=== PATIENT | female | born 1955 | race Caucasian/White ===

== ENCOUNTER 2017-03-06 09:53 | Emergency (ER) | payer SELFPAY ==
[~2017-03-06] VITALS: Ht 157.5 cm; Wt 65.0 kg
[~2017-03-06 09:53] MED LIST: OMEP20TA39 PO; PROZ20CA11 PO; ZOFR4TAB3 PO
[2017-03-06 09:55] VITALS: BP 147/76; PULSE 86; RESP 17; TEMP 98.4; O2SAT 97
[2017-03-06] MEDS ORDERED: SODIUM CHLOR 0.9% 1000 ML INJ 1,000 ML IV ONE (10:45)
[2017-03-06] MEDS ORDERED: MORPHINE SULFATE 4 MG/ML INJ IV PUSH ONE (10:45)
[2017-03-06] MEDS ORDERED: ONDANSETRON HCL 4 MG/2 ML VIAL IV PUSH ONE (10:45)
[2017-03-06 11:05] LABS: AUTOMATED NEUTROPHIL # 9.2 TH/MM3 (1.8-7.7); BASOPHIL % 0.3 % (0.0-2.0); EOSINOPHIL # 0.1 TH/MM3 (0-0.4); EOSINOPHIL % 0.6 % (0.0-4.0); HEMATOCRIT 39.7 % (35.0-46.0); HEMO FLAGS DIFF FINAL; LYMPH % 9.1 % (9.0-44.0); MEAN CELL VOLUME 90.4 FL (80.0-100.0); MEAN CORPUSCULAR HEMOGLOBIN 30.2 PG (27.0-34.0); MEAN CORPUSCULAR HGB CONC 33.4 % (32.0-36.0); MONO % 7.3 % (0.0-8.0); NEUT % 82.7 % (16.0-70.0); PLATELET COUNT 285 TH/MM3 (150-450); RED BLOOD COUNT 4.39 MIL/MM3 (4.00-5.30); RED CELL DISTRIBUTION WIDTH 13.3 % (11.6-17.2); WHITE BLOOD COUNT 11.1 TH/MM3 (4.0-11.0)
[2017-03-06 11:21] LABS: ANION GAP 7 MEQ/L (5-15); AST (GOT) 15 U/L (15-37); BLOOD UREA NITROGEN 15 MG/DL (7-18); CHLORIDE 106 MEQ/L (98-107); GLOMERULAR FILTRATION RATE 62 ML/MIN (>89); POTASSIUM 4.1 MEQ/L (3.5-5.1); SODIUM (NA) 138 MEQ/L (136-145)
[2017-03-06 11:22] LABS: ALT (GPT) 17 U/L (10-53)
[2017-03-06 11:24] LABS: ALKALINE PHOSPHATASE 85 U/L (45-117); TOTAL BILIRUBIN ADULT 0.4 MG/DL (0.2-1.0)
[2017-03-06] MEDS ORDERED: IOHEXOL 350 MG/ML 10 ML VIAL (for RAD DIAG) IVCONTRAST ONE (12:37)
--- NOTE | 2017-03-06 12:44 | RADRPT ---
EXAM DATE/TIME: 03/06/2017 12:28 [facility] COMPARISON: No previous studies available for comparison. INDICATIONS : Left lower quadrant pain. IV CONTRAST: 97 cc Omnipaque 350 (iohexol) IV ORAL CONTRAST: No oral contrast ingested. RADIATION DOSE: 7.24 CTDIvol (mGy) MEDICAL HISTORY : Diverticulitis. Chronic obstructive pulmonary disease. SURGICAL HISTORY : Appendectomy. ENCOUNTER: Initial ACUITY: 1 day PAIN SCALE: 5/10 LOCATION: Left lower quadrant TECHNIQUE: Volumetric scanning of the abdomen and pelvis was performed. Using automated exposure control and ad justment of the mA and/or kV according to patient size, radiation dose was kept as low as reasonably achievable to obtain optimal diagnostic quality images. DICOM format image data is available electro nically for review and comparison. FINDINGS: LOWER LUNGS: The visualized lower lungs are clear. LIVER: There is a tiny cyst in the anterior subcapsular portion of segment II. No suspicious mass. No biliar y ductal dilatation. The gallbladder is surgically absent. SPLEEN: Multiple granulomatous calcifications. Normal size. PANCREAS: Within normal limits. KIDNEYS: Normal in size and shape. There is no mass, stone or hydronephrosis. ADRENAL GLANDS: Within normal limits. VASCULAR: There is no aortic aneurysm. BOWEL/MESENTERY: The stomach, small bowel, and colon demonstrate no acute abnormality. There is no free intraperitone al air or fluid. ABDOMINAL WALL: Tiny fat-containing supraumbilical midline hernia. RETROPERITONEUM: There is no lymphadenopathy. BLADDER: No wall thickening or mass. REPRODUCTIVE: Uterus is surgically absent. No evidence of pelvic mass or free fluid. INGUINAL: There is no lymphadenopathy or hernia. MUSCULOSKELETAL: Within normal limits for patient age. CONCLUSION: No acute CT findings in the abdomen or pelvis. Ayan Garibay MD on March 06, 2017 at 12:38 Board Certified Radiologist. This report was verified electronically.
[2017-03-06 13:11] LABS: BLOOD, URINE NEG (NEG); GLUCOSE,URINE NEG (NEG); KETONE, URINE NEG (NEG); NITRITE,URINE NEG (NEG); SQUAMOUS EPITHELIAL CELL URINE 1 /hpf (0-5); URINE COLOR YELLOW (YELLW/STRAW)
[2017-03-06 13:13] LABS: COMMENT (UR) CULT NOT INDICATED; CULTURE IF INDICATED CULT NOT INDICATED
[2017-03-06] MEDS ORDERED: METR-1 PO (13:31)
[2017-03-06] MEDS ORDERED: CIPR-9 PO (13:31)
[2017-03-06] MEDS ORDERED: NAPR500T PO (13:31)
--- NOTE | 2017-03-06 13:31 | PD ---
HPI Chief Complaint: Abdominal Pain Time Seen by Provider: 10:28 Travel History International Travel<30 days: No Contact w/Intl Traveler<30days: No Traveled to known affect area: No History of Present Illness HPI This is a 61-year-old female who presents to the emergency department with several days of left lower quadrant abdominal pain, intermittent at first and more consistent throughout today, radiating to the left flank, stabbing, worse with movement and walking. She denies any fevers or chills. She has felt nauseous. She denies any dysuria or hematuria. She did have diverticulitis several years ago and she says this feels similar. She has had shingles in the past and she says this doesn't feel the same. She's never had a kidney stone. PFSH Past Medical History Arthritis: No Asthma: Yes Autoimmune Disease: No Blood Disorders: No Anxiety: Yes Depression: Yes Heart Rhythm Problems: No Cancer: No Cardiovascular Problems: Yes (MITRAL VALVE REGURITATION ; HX HEART CATH ; HX V- TACH) High Cholesterol: No Chemotherapy: No Chest Pain: No Congestive Heart Failure: No COPD: Yes Cerebrovascular Accident: Yes (2005; NO DEFICITS) Diabetes: No Diminished Hearing: No Endocrine: No Gastrointestinal Disorders: Yes (HX GASTRITIS/IBS/HX DIVERTICULITIS/GERD) GERD: Yes Glaucoma: No Genitourinary: No Headaches: No Hepatitis: No Hiatal Hernia: Yes Hypertension: No Immune Disorder: No Implanted Vascular Access Dvce: No Kidney Stones: No Medical other: No Musculoskeletal: Yes (LUMBAR STENOSIS; HX SCIATICA PAIN RT SIDE) Neurologic: Yes (2004 CVA) Psychiatric: Yes (ANXIETY AND DEPRESSION (TAKING PROZAC)) Reproductive: Yes (ENDOMETRIOSIS WITH ITZ) Respiratory: Yes (ASTHMA; COPD) Immunizations Current: Yes Migraines: Yes ( ) Myocardial Infarction: No Radiation Therapy: No Renal Failure: No Seizures: No Sickle Cell Disease: No Sleep Apnea: No Thyroid Disease: No Ulcer: No ?: Not Menopausal: Yes : 4 Para: 2 Miscarriage: 2 Ectopic : Yes Ovarian Cysts: Yes Past Surgical History Abdominal Surgery: Yes ( ) AICD: No Appendectomy: Yes Arteriovenous Shunt: No Cardiac Surgery: No Cholecystectomy: No Ear Surgery: No Endocrine Surgery: No Eye Surgery: No Genitourinary Surgery: No Gynecologic Surgery: Yes (ECTOPIC PREG-LAPAROTOMY WITH SALPINGO-OOPHORECTOMY) Hysterectomy: Yes (1994) Insulin Pump: No Joint Replacement: No Neurologic Surgery: No Oral Surgery: Yes (T&A) Pacemaker: No Thoracic Surgery: No Tonsillectomy: Yes (T & A) Other Surgery: Yes Social History Alcohol Use: Yes (RARE) Tobacco Use: No Substance Use: No Allergies-Medications (Allergen,Severity, Reaction): Coded Allergies: No Known Allergies (Verified , 03/06/17) Reported Meds & Prescriptions Reported Meds & Active Scripts Active Review of Systems Except as stated in HPI: all other systems reviewed are Neg Physical Exam Narrative GENERAL:Well appearing, no acute distress SKIN: Focused skin assessment warm and dry. No rash in the left lower quadrant HEAD: Atraumatic. Normocephalic. EYES: Pupils equal and round. No injection or drainage. ENT: Moist mucous membranes NECK: Trachea midline. CARDIOVASCULAR: Regular rate and rhythm. No murmur appreciated. RESPIRATORY: Clear to auscultation. Breath sounds equal bilaterally. GASTROINTESTINAL: Abdomen soft, tender to palpation with guarding in the left lower quadrant : No CVA tenderness MUSCULOSKELETAL: No obvious deformities. NEUROLOGICAL: Awake and alert. No obvious cranial nerve deficits. Moving all extremities. PSYCHIATRIC: Appropriate mood and affect; insight and judgment normal. Data Data Last Documented VS Vital Signs Date Time Temp Pulse Resp B/P (MAP) Pulse Ox O2 Delivery O2 Flow Rate FiO2 03/06/17 09:55 98.4 86 17 147/76 (99) 97 Orders Orders Complete Blood Count With Diff (03/06/17 10:34) Comprehensive Metabolic Panel (03/06/17 10:34) ^ Insert Iv (03/06/17 10:34) Ct Abd/Pel W Iv Contrast(Rout) (03/06/17 ) Morphine Inj (Morphine Inj) (03/06/17 10:45) Ondansetron Inj (Zofran Inj) (03/06/17 10:45) Sodium Chlor 0.9% 1000 Ml Inj (Ns 1000 M (03/06/17 10:45) Iohexol 350 Inj (Omnipaque 350 Inj) (03/06/17 12:37) Urinalysis - C+S If Indicated (03/06/17 12:49) Labs Laboratory Tests Test 03/06/17 10:55 03/06/17 12:55 White Blood Count 11.1 TH/MM3 Red Blood Count 4.39 MIL/MM3 Hemoglobin 13.3 GM/DL Hematocrit 39.7 % Mean Corpuscular Volume 90.4 FL Mean Corpuscular Hemoglobin 30.2 PG Mean Corpuscular Hemoglobin Concent 33.4 % Red Cell Distribution Width 13.3 % Platelet Count 285 TH/MM3 Mean Platelet Volume 7.0 FL Neutrophils (%) (Auto) 82.7 % Lymphocytes (%) (Auto) 9.1 % Monocytes (%) (Auto) 7.3 % Eosinophils (%) (Auto) 0.6 % Basophils (%) (Auto) 0.3 % Neutrophils # (Auto) 9.2 TH/MM3 Lymphocytes # (Auto) 1.0 TH/MM3 Monocytes # (Auto) 0.8 TH/MM3 Eosinophils # (Auto) 0.1 TH/MM3 Basophils # (Auto) 0.0 TH/MM3 CBC Comment DIFF FINAL Differential Comment Blood Urea Nitrogen 15 MG/DL Creatinine 0.92 MG/DL Random Glucose 103 MG/DL Total Protein 7.6 GM/DL Albumin 4.2 GM/DL Calcium Level 9.3 MG/DL Alkaline Phosphatase 85 U/L Aspartate Amino Transf (AST/SGOT) 15 U/L Alanine Aminotransferase (ALT/SGPT) 17 U/L Total Bilirubin 0.4 MG/DL Sodium Level 138 MEQ/L Potassium Level 4.1 MEQ/L Chloride Level 106 MEQ/L Carbon Dioxide Level 25.0 MEQ/L Anion Gap 7 MEQ/L Estimat Glomerular Filtration Rate 62 ML/MIN Urine Color YELLOW Urine Turbidity CLEAR Urine pH 6.0 Urine Specific [place] 1.018 Urine Protein NEG mg/dL Urine Glucose (UA) NEG mg/dL Urine Ketones NEG mg/dL Urine Occult Blood NEG Urine Nitrite NEG Urine Bilirubin NEG Urine Urobilinogen LESS THAN 2.0 MG/DL Urine Leukocyte Esterase NEG Urine RBC 1 /hpf Urine Squamous Epithelial Cells 1 /hpf Microscopic Urinalysis Comment CULT NOT INDICATED MDM Medical Decision Making Medical Screen Exam Complete: Yes Emergency Medical Condition: Yes Interpretation(s) Mild leukocytosis Electrolytes are reassuring Urinalysis negative for infection Last 24 hours Impressions Abdomen/Pelvis CT 03/06/17 0000 Signed Impressions: Service Date/Time: March 12:28 - CONCLUSION: No acute CT findings in the abdomen or pelvis. Ayan Garibay MD Differential Diagnosis Diverticulitis, nephrolithiasis, pyelonephritis, ovarian cyst Narrative Course This is a 61-year-old female who presents to the emergency department with left lower quadrant abdominal pain and nausea been going on for several days. She appears uncomfortable and is tender on exam. Labs are obtained which demonstrated a mild leukocytosis. CT abdomen and pelvis is negative for kidney stone or diverticulitis. I think given her symptoms will be reasonable to prescribe her a course of antibiotic therapy for presumed early diverticulitis. I advised her to follow a clear liquid diet and if her symptoms don't improve she should follow-up with gastroenterology. Diagnosis Primary Impression: Left lower quadrant pain Patient Instructions: General Instructions Additional Instructions: Sometimes patients with diverticulitis require admission to the hospital for IV antibiotics. If you develop worsening or severe abdominal pain, persistent fevers, or inability to drink return to the emergency department. Follow a clear liquid diet for 3 days until you notice your symptoms improving, then slowly advance your diet. Complete your course of antibiotics. Follow up with your primary care physician as soon as possible to ensure you are improving. Med/Other Pt SpecificInfo: Prescription(s) given Scripts Naproxen (Naproxen) 500 Mg Tab 500 MG PO BID, #20 TAB 0 Refills Prov: Evette Rojo MD 03/06/17 Metronidazole (Flagyl) 500 Mg Tab 500 MG PO TID for Infection for 7 Days, TAB 0 Refills Prov: Evette Rojo MD 03/06/17 Ciprofloxacin (Cipro) 500 Mg Tab 500 MG PO BID for Infection for 7 Days, #14 TAB 0 Refills Prov: Evette Rojo MD 03/06/17 Disposition: 01 DISCHARGE HOME Condition: Stable Evette Rojo MD Mar 06, 2017 13:31
== END 2017-03-06 14:00 | disposition home or self-care (01) ==
LOC: NEPD 09:53
DX: R10.32 Left lower quadrant pain (principal)
CPT/HCPCS: 74177; 80053; 81001; 83690; 85025; 96361; 96374; 96375; 99285; J2270; J2405; J7030; Q9967

== ENCOUNTER 2017-06-30 15:41 | Observation (INO) | payer OTHER ==
[~2017-06-30] VITALS: Ht 157.5 cm; Wt 62.0 kg
[~2017-06-30 15:41] MED LIST changes: +CIPR-9 PO; +METR-1 PO; +NAPR500T2 PO; -OMEP20TA39 PO; -PROZ20CA11 PO; -ZOFR4TAB3 PO
[2017-06-30 16:12] VITALS: BP 139/77; PULSE 77; RESP 16; TEMP 99; O2SAT 99
[2017-06-30 16:20] VITALS: BP_SYST 119; BP_SYST 128; BP_DIAS 71; BP_DIAS 80; RESP 16; O2SAT 98
[2017-06-30] MEDS ORDERED: SODIUM CHLOR 0.9% 1000 ML INJ 1,000 ML IV ONE (16:23)
[2017-06-30] MEDS ORDERED: SODIUM CHLORIDE 0.9% FLUSH 10 ML FLUSH IVF PRN (16:30)
--- NOTE | 2017-06-30 16:44 | RADRPT ---
EXAM DATE/TIME: 06/30/2017 16:34 [facility] COMPARISON: No previous studies available for comparison. INDICATIONS : Palpitations MEDICAL HISTORY : Diverticulitis. Chronic obstructive pulmonary disease SURGICAL HISTORY : Appendectomy. ENCOUNTER: Initial ACUITY: 4 - 6 days PAIN SCORE: 0/10 LOCATION: chest FINDINGS: A single view of the chest demonstrates the lungs to be symmetrically aerated without evidence of mas s, infiltrate or effusion. The cardiomediastinal contours are unremarkable. Osseous structures are intact. CONCLUSION: No acute disease. Tomas Parra MD on June 30, 2017 at 16:41 Board Certified Radiologist. This report was verified electronically.
[2017-06-30 16:58] LABS: AUTOMATED NEUTROPHIL # 3.8 TH/MM3 (1.8-7.7); BASOPHIL % 0.8 % (0.0-2.0); EOSINOPHIL % 0.8 % (0.0-4.0); HEMATOCRIT 36.4 % (35.0-46.0); HEMOGLOBIN 12.8 GM/DL (11.6-15.3); LYMPH % 25.4 % (9.0-44.0); LYMPHOCYTE # 1.5 TH/MM3 (1.0-4.8); MEAN CELL VOLUME 87.4 FL (80.0-100.0); MEAN CORPUSCULAR HEMOGLOBIN 30.8 PG (27.0-34.0); MEAN CORPUSCULAR HGB CONC 35.2 % (32.0-36.0); MEAN PLATELET VOLUME 7.2 FL (7.0-11.0); MONO % 9.3 % (0.0-8.0); MONOCYTE # 0.6 TH/MM3 (0-0.9); NEUT % 63.7 % (16.0-70.0); PLATELET COUNT 395 TH/MM3 (150-450); RED BLOOD COUNT 4.16 MIL/MM3 (4.00-5.30); RED CELL DISTRIBUTION WIDTH 12.4 % (11.6-17.2); WHITE BLOOD COUNT 5.9 TH/MM3 (4.0-11.0)
[2017-06-30 17:29] LABS: ALBUMIN 3.7 GM/DL (3.4-5.0); ALT (GPT) 17 U/L (10-53); AST (GOT) 13 U/L (15-37); BICARBONATE 27.1 MEQ/L (21.0-32.0); BLOOD UREA NITROGEN 10 MG/DL (7-18); CALCIUM 8.7 MG/DL (8.5-10.1); CHLORIDE 110 MEQ/L (98-107); CREATININE 0.92 MG/DL (0.50-1.00); GLOMERULAR FILTRATION RATE 62 ML/MIN (>89); GLUCOSE,RANDOM 91 MG/DL (74-106); SODIUM (NA) 146 MEQ/L (136-145)
[2017-06-30 17:34] LABS: ALKALINE PHOSPHATASE 65 U/L (45-117); TOTAL BILIRUBIN ADULT 0.3 MG/DL (0.2-1.0); TOTAL PROTEIN 6.8 GM/DL (6.4-8.2); TROPONIN I LESS THAN 0.02 NG/ML (0.02-0.05)
--- NOTE | 2017-06-30 18:41 | PD ---
HPI Chief Complaint: Syncope/Near-Syncope Time Seen by Provider: 16:23 Travel History International Travel<30 days: No Contact w/Intl Traveler<30days: No Traveled to known affect area: No History of Present Illness HPI Patient is a 61-year-old female who comes in complaining of syncopal episode. She says she went to work today and she syncopized. EMS was called, she passed out again with them. They did check orthostatic vital signs and noticed a drop in her blood pressure with standing. She says she has been sick with flulike symptoms and has not been eating and drinking as much. She denies having any chest pain or shortness of breath. She denies nausea or vomiting. She has not had any fever or chills. PFSH Past Medical History Arthritis: No Asthma: Yes Autoimmune Disease: No Blood Disorders: No Anxiety: Yes Depression: Yes Heart Rhythm Problems: No Cancer: No Cardiovascular Problems: Yes (MITRAL VALVE REGURITATION ; HX HEART CATH ; HX V- TACH) High Cholesterol: No Chemotherapy: No Chest Pain: No Congestive Heart Failure: No COPD: Yes Cerebrovascular Accident: Yes (2005; NO DEFICITS) Diabetes: No Diminished Hearing: No Endocrine: No Gastrointestinal Disorders: Yes (HX GASTRITIS/IBS/HX DIVERTICULITIS/GERD) GERD: Yes Glaucoma: No Genitourinary: No Headaches: No Hepatitis: No Hiatal Hernia: Yes Hypertension: No Immune Disorder: No Implanted Vascular Access Dvce: No Kidney Stones: No Musculoskeletal: Yes (LUMBAR STENOSIS; HX SCIATICA PAIN RT SIDE) Neurologic: Yes (2004 CVA) Psychiatric: Yes (ANXIETY AND DEPRESSION (TAKING PROZAC)) Reproductive: Yes (ENDOMETRIOSIS WITH ITZ) Respiratory: Yes (ASTHMA; COPD) Immunizations Current: Yes Migraines: Yes ( ) Myocardial Infarction: No Radiation Therapy: No Renal Failure: No Seizures: No Sickle Cell Disease: No Sleep Apnea: No Thyroid Disease: No Ulcer: No Tetanus Vaccination: > 5 Years Influenza Vaccination: No Menopausal: Yes : 4 Para: 2 Miscarriage: 2 : 0 Ectopic : Yes Ovarian Cysts: Yes Past Surgical History Abdominal Surgery: Yes ( ) AICD: No Appendectomy: Yes Arteriovenous Shunt: No Cardiac Surgery: No Cholecystectomy: No Ear Surgery: No Endocrine Surgery: No Eye Surgery: No Genitourinary Surgery: No Gynecologic Surgery: Yes (ECTOPIC PREG-LAPAROTOMY WITH SALPINGO-OOPHORECTOMY) Hysterectomy: Yes (1994) Insulin Pump: No Joint Replacement: No Neurologic Surgery: No Oral Surgery: Yes (T&A) Pacemaker: No Thoracic Surgery: No Tonsillectomy: Yes (T & A) Other Surgery: Yes Social History Alcohol Use: Yes (RARE) Tobacco Use: No Substance Use: No Allergies-Medications (Allergen,Severity, Reaction): Coded Allergies: No Known Allergies (Verified Adverse Reaction, Unknown, 06/30/17) Reported Meds & Prescriptions Reported Meds & Active Scripts Active No Active Prescriptions or Reported Medications Review of Systems Except as stated in HPI: all other systems reviewed are Neg General / Constitutional: No: Fever, Chills Eyes: No: Blurred Vision HENT: No: Headaches, Lightheadedness Cardiovascular: No: Chest Pain or Discomfort Respiratory: No: Shortness of Breath Gastrointestinal: No: Nausea, Vomiting Genitourinary: No: Dysuria Musculoskeletal: No: Myalgias, Edema Skin: No Rash, No Change in Pigmentation Neurologic: Positive: Syncope Physical Exam Narrative GENERAL: Awake and alert, no acute distress. SKIN: Focused skin assessment warm/dry. HEAD: Atraumatic. Normocephalic. EYES: Pupils equal and round. No scleral icterus. ENT: Mucous membranes pink and moist. NECK: Trachea midline. No JVD. CARDIOVASCULAR: Regular rate and rhythm. No murmur appreciated. RESPIRATORY: No accessory muscle use. Clear to auscultation. Breath sounds equal bilaterally. GASTROINTESTINAL: Abdomen soft, nondistended. Mild tenderness to palpation of the lower abdomen. No rebound or guarding. MUSCULOSKELETAL: No obvious deformities. No clubbing. No cyanosis. No edema. NEUROLOGICAL: Awake and alert. No obvious cranial nerve deficits. Motor grossly within normal limits. Normal speech. PSYCHIATRIC: Appropriate mood and affect; insight and judgment normal. Data Data Last Documented VS Vital Signs Date Time Temp Pulse Resp B/P (MAP) Pulse Ox O2 Delivery O2 Flow Rate FiO2 06/30/17 16:20 16 98 Room Air 06/30/17 16:20 76 119/71 (87) 80 128/80 (96) 84 06/30/17 16:12 99.0 Orders Orders Electrocardiogram (06/30/17 ) Complete Blood Count With Diff (06/30/17 16:23) Comprehensive Metabolic Panel (06/30/17 16:23) Troponin I (06/30/17 16:23) Act Partial Throm Time (Ptt) (06/30/17 16:23) Prothrombin Time / Inr (Pt) (06/30/17 16:23) Urinalysis - C+S If Indicated (06/30/17 16:23) Chest, Single Ap (06/30/17 16:23) Ecg Monitoring (06/30/17 16:23) Iv Access Insert/Monitor (06/30/17 16:23) Oximetry (06/30/17 16:23) Sodium Chloride 0.9% Flush (Ns Flush) (06/30/17 16:30) Sodium Chlor 0.9% 1000 Ml Inj (Ns 1000 M (06/30/17 16:23) Orthostatic Blood Pressure (06/30/17 16:23) Admit Order (Ed Use Only) (06/30/17 ) Labs Laboratory Tests Test 06/30/17 16:40 White Blood Count 5.9 TH/MM3 Red Blood Count 4.16 MIL/MM3 Hemoglobin 12.8 GM/DL Hematocrit 36.4 % Mean Corpuscular Volume 87.4 FL Mean Corpuscular Hemoglobin 30.8 PG Mean Corpuscular Hemoglobin Concent 35.2 % Red Cell Distribution Width 12.4 % Platelet Count 395 TH/MM3 Mean Platelet Volume 7.2 FL Neutrophils (%) (Auto) 63.7 % Lymphocytes (%) (Auto) 25.4 % Monocytes (%) (Auto) 9.3 % Eosinophils (%) (Auto) 0.8 % Basophils (%) (Auto) 0.8 % Neutrophils # (Auto) 3.8 TH/MM3 Lymphocytes # (Auto) 1.5 TH/MM3 Monocytes # (Auto) 0.6 TH/MM3 Eosinophils # (Auto) 0.0 TH/MM3 Basophils # (Auto) 0.0 TH/MM3 CBC Comment DIFF FINAL Differential Comment Prothrombin Time 10.0 SEC Prothromb Time International Ratio 1.0 RATIO Activated Partial Thromboplast Time 26.4 SEC Blood Urea Nitrogen 10 MG/DL Creatinine 0.92 MG/DL Random Glucose 91 MG/DL Total Protein 6.8 GM/DL Albumin 3.7 GM/DL Calcium Level 8.7 MG/DL Alkaline Phosphatase 65 U/L Aspartate Amino Transf (AST/SGOT) 13 U/L Alanine Aminotransferase (ALT/SGPT) 17 U/L Total Bilirubin 0.3 MG/DL Sodium Level 146 MEQ/L Potassium Level 3.7 MEQ/L Chloride Level 110 MEQ/L Carbon Dioxide Level 27.1 MEQ/L Anion Gap 9 MEQ/L Estimat Glomerular Filtration Rate 62 ML/MIN Troponin I LESS THAN 0.02 NG/ML MDM Medical Decision Making Medical Screen Exam Complete: Yes Emergency Medical Condition: Yes Medical Record Reviewed: Yes Interpretation(s) ECG shows normal sinus rhythm at 77, no ST elevation or depression, normal intervals Differential Diagnosis Dehydration versus arrhythmia versus ACS Narrative Course Patient is a 61-year-old female who comes in after 2 syncopal episodes. Exam shows no acute abnormalities. While the nurse was trying to check orthostatic vital signs, patient syncopized again. She was lowered to the ground by the nurse, there was no head trauma. Labs show a sodium of 146, no other acute abnormalities. Patient given IV fluids. She will be admitted for further management. Diagnosis Primary Impression: Syncope Qualified Codes: R55 - Syncope and collapse Admitting Information Admitting Physician Requests: Observation Scripts No Active Prescriptions or Reported Meds Gilma Murcia MD Jun 30, 2017 18:41
[2017-06-30 19:29] LABS: BACTERIA, URINE RARE /hpf; BILIRUBIN, URINE NEG (NEG); BLOOD, URINE NEG (NEG); GLUCOSE,URINE NEG (NEG); KETONE, URINE NEG (NEG); NITRITE,URINE NEG (NEG); PH, URINE 6.5 (5.0-8.5); SQUAMOUS EPITHELIAL CELL URINE <1 /hpf (0-5); URINE COLOR COLORLESS (YELLW/STRAW); URINE LEUKOCYTE ESTERASE NEG (NEG)
[2017-06-30 20:11] VITALS: BP 122/75; PULSE 90; RESP 16; O2SAT 96
[2017-06-30] MEDS ORDERED: BISACODYL 10 MG SUPP RECTAL PRN (20:15)
[2017-06-30] MEDS ORDERED: SODIUM CHLORIDE 0.9% FLUSH 10 ML FLUSH IV FLUSH PRN (20:15)
[2017-06-30] MEDS ORDERED: LACTULOSE SYRUP 20 GM/30 ML CUP PO PRN (20:15)
[2017-06-30] MEDS ORDERED: ONDANSETRON HCL 4 MG/2 ML VIAL IV PUSH ONE (20:15)
[2017-06-30] MEDS ORDERED: NALOXONE HCL 0.4 MG/ML AMP IV PUSH PRN (20:15)
[2017-06-30] MEDS ORDERED: MAGNESIUM HYDROXIDE SUSP 30 ML CUP PO PRN (20:15)
[2017-06-30] MEDS ORDERED: SENNOSIDES 8.6 MG TAB PO PRN (20:15)
[2017-06-30] MEDS: SODIUM CHLOR 0.9% 1000 ML INJ 1,000 ML IV SCH (20:24)
[2017-06-30 21:06] VITALS: BP 122/62; PULSE 79; RESP 18; TEMP 98.6; O2SAT 98
[2017-06-30] MEDS: SODIUM CHLORIDE 0.9% FLUSH 10 ML FLUSH IV FLUSH SCH (21:14)
[2017-06-30] MEDS: DOCUSATE SODIUM 50 MG/SENNA 8.6 MG TAB PO SCH (21:14)
--- NOTE | 2017-06-30 22:10 | HHI.HP ---
HPI Service [facility] Hospitalists Primary Care Physician Vita Back M.D. Admission Diagnosis Syncope Chief Complaint: 3 episodes syncope Travel History International Travel<30 Days: No Contact w/Intl Traveler <30 Da: No Traveled to Known Affected Are: No History of Present Illness Patient is a 61-year-old female who comes in complaining of syncopal episode. She says she went to work today and she had syncopal episode. EMS was called, she passed out again with them. They did check orthostatic vital signs and noticed a drop in her blood pressure with standing. She says she has been sick with flulike symptoms and has not been eating and drinking as much. She denies having any chest pain or shortness of breath. She denies nausea or vomiting. She has not had any fever or chills. Patient has history of ventricular arrhythmia 2008,2009 had cardiac cath and was on metoprolol for a while . Patient at that time felt palpitations before the arrhythmia. Patient will be admitted and placed on monitor and give fluids as was orthostatic today. Review of Systems Cardiovascular: COMPLAINS OF: Syncope Past Family Social History Past Medical History ventricular arrhythmia ,gerd,gastritis,?mvr,back pain cva without residual 2004 Past Surgical History hysterectomy,appendix gallbladder Reported Medications none Allergies: Coded Allergies: No Known Allergies (Verified Allergy, Unknown, 06/30/17) Social History former smoker no alcohol Physical Exam Vital Signs Vital Signs Date Time Temp Pulse Resp B/P (MAP) Pulse Ox O2 Delivery O2 Flow Rate FiO2 06/30/17 21:06 98.6 79 18 122/62 (82) 98 06/30/17 20:45 06/30/17 20:12 90 15 97 Room Air 06/30/17 20:11 90 16 122/75 (91) 96 Room Air 06/30/17 16:20 16 98 Room Air 06/30/17 16:20 76 16 119/71 (87) 80 16 128/80 (96) 84 16 06/30/17 16:12 99.0 77 16 139/77 (97) 99 Physical Exam GENERAL: This is a well-nourished, well-developed patient, in no apparent distress. SKIN: No rashes, ecchymoses or lesions. Cool and dry. HEAD: Atraumatic. Normocephalic. No temporal or scalp tenderness. EYES: Pupils equal round and reactive. Extraocular motions intact. No scleral icterus. No injection or drainage. ENT: Nose without bleeding, purulent drainage or septal hematoma. Throat without erythema, tonsillar hypertrophy or exudate. Uvula midline. Airway patent. NECK: Trachea midline. No JVD or lymphadenopathy. Supple, nontender, no meningeal signs. CARDIOVASCULAR: Regular rate and rhythm without murmurs, gallops, or rubs. RESPIRATORY: Clear to auscultation. Breath sounds equal bilaterally. No wheezes , rales, or rhonchi. GASTROINTESTINAL: Abdomen soft, non-tender, nondistended. No hepato-splenomegaly , or palpable masses. No guarding. MUSCULOSKELETAL: Extremities without clubbing, cyanosis, or edema. No joint tenderness, effusion, or edema noted. No calf tenderness. Negative Homans sign bilaterally. NEUROLOGICAL: Awake and alert. Cranial nerves II through XII intact. Motor and sensory grossly within normal limits. Five out of 5 muscle strength in all muscle groups. Normal speech. Laboratory Laboratory Tests Test 06/30/17 16:40 06/30/17 18:55 White Blood Count 5.9 Red Blood Count 4.16 Hemoglobin 12.8 Hematocrit 36.4 Mean Corpuscular Volume 87.4 Mean Corpuscular Hemoglobin 30.8 Mean Corpuscular Hemoglobin Concent 35.2 Red Cell Distribution Width 12.4 Platelet Count 395 Mean Platelet Volume 7.2 Neutrophils (%) (Auto) 63.7 Lymphocytes (%) (Auto) 25.4 Monocytes (%) (Auto) 9.3 Eosinophils (%) (Auto) 0.8 Basophils (%) (Auto) 0.8 Neutrophils # (Auto) 3.8 Lymphocytes # (Auto) 1.5 Monocytes # (Auto) 0.6 Eosinophils # (Auto) 0.0 Basophils # (Auto) 0.0 CBC Comment DIFF FINAL Differential Comment Prothrombin Time 10.0 Prothromb Time International Ratio 1.0 Activated Partial Thromboplast Time 26.4 Blood Urea Nitrogen 10 Creatinine 0.92 Random Glucose 91 Total Protein 6.8 Albumin 3.7 Calcium Level 8.7 Alkaline Phosphatase 65 Aspartate Amino Transf (AST/SGOT) 13 Alanine Aminotransferase (ALT/SGPT) 17 Total Bilirubin 0.3 Sodium Level 146 Potassium Level 3.7 Chloride Level 110 Carbon Dioxide Level 27.1 Anion Gap 9 Estimat Glomerular Filtration Rate 62 Troponin I LESS THAN 0.02 Urine Color COLORLESS Urine Turbidity CLEAR Urine pH 6.5 Urine Specific [place] 1.003 Urine Protein NEG Urine Glucose (UA) NEG Urine Ketones NEG Urine Occult Blood NEG Urine Nitrite NEG Urine Bilirubin NEG Urine Urobilinogen LESS THAN 2.0 Urine Leukocyte Esterase NEG Urine WBC LESS THAN 1 Urine Squamous Epithelial Cells <1 Urine Bacteria RARE Microscopic Urinalysis Comment CULT NOT INDICATED Result Diagram: 06/30/17 1640 06/30/17 1640 Imaging Last 24 hours Impressions Chest X-Ray 06/30/17 1623 Signed Impressions: Service Date/Time: Friday, June 30, 2017 16:34 - CONCLUSION: No acute disease. Tomas Parra MD Course ekg no acute changes Caprini VTE Risk Assessment Caprini VTE Risk Assessment: Mod/High Risk (score >= 2) Caprini Risk Assessment Model Point Value = 1 Point Value = 2 Point Value = 3 Point Value = 5 Age 41-60 Minor surgery BMI > 25 kg/m2 Swollen legs Varicose veins or History of unexplained or recurrent spontaneous Oral contraceptives or hormone replacement Sepsis (< 1 month) Serious lung disease, including pneumonia (< 1 month) Abnormal pulmonary function Acute myocardial infarction Congestive heart failure (< 1 month) History of inflammatory bowel disease Medical patient at bed rest Age 61-74 Arthroscopic surgery Major open surgery (> 45 min) Laparoscopic surgery (> 45 min) Malignancy Confined to bed (> 72 hours) Immobilizing plaster cast Central venous access Age >= 75 History of VTE Family history of VTE Factor V Leiden Prothrombin [id number] Lupus anticoagulant Anticardiolipin antibodies Elevated serum homocysteine Heparin-induced thrombocytopenia Other congenital or acquired thrombophilia Stroke (< 1 month) Elective arthroplasty Hip, pelvis, or leg fracture Acute spinal cord injury (< 1 month) Prophylaxis Regimen Total Risk Factor Score Risk Level Prophylaxis Regimen 0-1 Low Early ambulation 2 Moderate Order ONE of the following: *Sequential Compression Device (SCD) *Heparin 5000 units SQ BID 3-4 Higher Order ONE of the following medications: *Heparin 5000 units SQ TID *Enoxaparin/Lovenox 40 mg SQ daily (WT < 150 kg, CrCl > 30 mL/min) *Enoxaparin/Lovenox 30 mg SQ daily (WT < 150 kg, CrCl > 10-29 mL/min) *Enoxaparin/Lovenox 30 mg SQ BID (WT < 150 kg, CrCl > 30 mL/min) AND/OR *Sequential Compression Device (SCD) 5 or more Highest Order ONE of the following medications: *Heparin 5000 units SQ TID (Preferred with Epidurals) *Enoxaparin/Lovenox 40 mg SQ daily (WT < 150 kg, CrCl > 30 mL/min) *Enoxaparin/Lovenox 30 mg SQ daily (WT < 150 kg, CrCl > 10-29 mL/min) *Enoxaparin/Lovenox 30 mg SQ BID (WT < 150 kg, CrCl > 30 mL/min) AND *Sequential Compression Device (SCD) Assessment and Plan Problem List: (1) Syncope ICD Codes: R55 - Syncope and collapse Status: Acute Plan: will place on monitor and will get 2d echo labs are normal as was ekg and cxr (2) Orthostatic syncope ICD Codes: I95.1 - Orthostatic hypotension Plan: iv fluid the syncope could be from patient having some orthostatic changes Assessment and Plan further plan as develops Code Status full Discussed Condition With patient Problem Qualifiers (1) Syncope: Qualified Codes: R55 - Syncope and collapse Mariusz Perez MD Jun 30, 2017 22:10
[2017-06-30] MEDS ORDERED: ACETAMINOPHEN 325 MG TAB PO PRN (22:15)
[2017-07-01] VITALS (12 sets, daily range): BP systolic 108–137; BP diastolic 59–82; PULSE 62–95; RESP 16–18; TEMP 97.7–99.1; O2SAT 95–98
[2017-07-01 06:36] LABS: CALCIUM 8.2 MG/DL (8.5-10.1); CREATININE 0.85 MG/DL (0.50-1.00)
[2017-07-01] MEDS: DOCUSATE SODIUM 50 MG/SENNA 8.6 MG TAB PO SCH ×2 (09:00→20:33)
[2017-07-01] MEDS: ONDANSETRON HCL 4 MG/2 ML VIAL IV PRN ×2 (09:47→16:33)
[2017-07-01] MEDS: SODIUM CHLORIDE 0.9% FLUSH 10 ML FLUSH IV FLUSH SCH ×2 (09:47→20:32)
[2017-07-01] MEDS: SODIUM CHLOR 0.9% 1000 ML INJ 1,000 ML IV SCH ×2 (09:48→20:32)
--- NOTE | 2017-07-01 11:18 | HHI.PR ---
Subjective Remarks Pt had two episodes of syncope yesterday which shes thinks was related to dehydration as she had recently had an acute illness and had not been eating or drinking much and had lost about 10lbs She was reportedly orthostatic prior to admission No evidence of orthostasis since admission Objective Vitals Vital Signs Date Time Temp Pulse Resp B/P (MAP) Pulse Ox O2 Delivery O2 Flow Rate FiO2 07/01/17 10:43 98.2 74 16 120/65 (83) 96 123/76 (92) 123/82 (96) 07/01/17 04:21 98.0 62 18 108/59 (75) 96 07/01/17 04:00 79 07/01/17 02:00 64 07/01/17 00:24 95 07/01/17 00:14 79 18 119/66 (83) 98 06/30/17 21:06 98.6 79 18 122/62 (82) 98 06/30/17 20:45 06/30/17 20:12 90 15 97 Room Air 06/30/17 20:11 90 16 122/75 (91) 96 Room Air 06/30/17 16:20 16 98 Room Air 06/30/17 16:20 76 16 119/71 (87) 80 16 128/80 (96) 84 16 06/30/17 16:12 99.0 77 16 139/77 (97) 99 Result Diagram: 06/30/17 1640 07/01/17 0519 Other Results Laboratory Tests Test 06/30/17 16:40 06/30/17 18:55 07/01/17 05:19 White Blood Count 5.9 TH/MM3 Red Blood Count 4.16 MIL/MM3 Hemoglobin 12.8 GM/DL Hematocrit 36.4 % Mean Corpuscular Volume 87.4 FL Mean Corpuscular Hemoglobin 30.8 PG Mean Corpuscular Hemoglobin Concent 35.2 % Red Cell Distribution Width 12.4 % Platelet Count 395 TH/MM3 Mean Platelet Volume 7.2 FL Neutrophils (%) (Auto) 63.7 % Lymphocytes (%) (Auto) 25.4 % Monocytes (%) (Auto) 9.3 % Eosinophils (%) (Auto) 0.8 % Basophils (%) (Auto) 0.8 % Neutrophils # (Auto) 3.8 TH/MM3 Lymphocytes # (Auto) 1.5 TH/MM3 Monocytes # (Auto) 0.6 TH/MM3 Eosinophils # (Auto) 0.0 TH/MM3 Basophils # (Auto) 0.0 TH/MM3 CBC Comment DIFF FINAL Differential Comment Prothrombin Time 10.0 SEC Prothromb Time International Ratio 1.0 RATIO Activated Partial Thromboplast Time 26.4 SEC Blood Urea Nitrogen 10 MG/DL 10 MG/DL Creatinine 0.92 MG/DL 0.85 MG/DL Random Glucose 91 MG/DL 93 MG/DL Total Protein 6.8 GM/DL Albumin 3.7 GM/DL Calcium Level 8.7 MG/DL 8.2 MG/DL Alkaline Phosphatase 65 U/L Aspartate Amino Transf (AST/SGOT) 13 U/L Alanine Aminotransferase (ALT/SGPT) 17 U/L Total Bilirubin 0.3 MG/DL Sodium Level 146 MEQ/L 144 MEQ/L Potassium Level 3.7 MEQ/L 3.7 MEQ/L Chloride Level 110 MEQ/L 111 MEQ/L Carbon Dioxide Level 27.1 MEQ/L 26.0 MEQ/L Anion Gap 9 MEQ/L 7 MEQ/L Estimat Glomerular Filtration Rate 62 ML/MIN 68 ML/MIN Troponin I LESS THAN 0.02 NG/ML Urine Color COLORLESS Urine Turbidity CLEAR Urine pH 6.5 Urine Specific [place] 1.003 Urine Protein NEG mg/dL Urine Glucose (UA) NEG mg/dL Urine Ketones NEG mg/dL Urine Occult Blood NEG Urine Nitrite NEG Urine Bilirubin NEG Urine Urobilinogen LESS THAN 2.0 MG/DL Urine Leukocyte Esterase NEG Urine WBC LESS THAN 1 /hpf Urine Squamous Epithelial Cells <1 /hpf Urine Bacteria RARE /hpf Microscopic Urinalysis Comment CULT NOT INDICATED Imaging Last 24 hours Impressions Chest X-Ray 06/30/17 1623 Signed Impressions: Service Date/Time: Friday, June 30, 2017 16:34 - CONCLUSION: No acute disease. Tomas Parra MD Objective Remarks General: NAD, AAOx3 Chest: CTA Cardiac: Regular Abd: +BS, soft ND/NT Ext: No edema A/P Problem List: (1) Syncope ICD Codes: R55 - Syncope and collapse Status: Acute Plan: - Pt is a 61 y/o female with GERD, chronic back pain, hx of CVA in 2004 and hx of ventricular arrhythmia who presented to the ED on 06/30 after a syncopal episode at work. She had a second syncopal episode after the EMS arrived. - Pt had reported orthostatic vital signs and noticed a drop in her blood pressure with standing. Pt was reportedly sick recently with flulike symptoms and had not been eating and drinking as much as she normally does. - Patient has history of ventricular arrhythmia 2008 and had a Cardiac cath in 04/10 which noted normal coronary arteries and in 2009 she had an EPS with Dr. Carreno which was negative. - Pt was given IVF overnight and orthostatic vital signs were rechecked this morning which are negative. - Telemetry - Check Holter Monitor - Carotid US - 2D echo - Encourage oral intake - Supportive care - PT evaluation (2) Orthostatic syncope ICD Codes: I95.1 - Orthostatic hypotension Plan: - See above Assessment and Plan Patient examined. Assessment and plan formulated with Latoya Smith PA-C. I agree with the above. Problem Qualifiers (1) Syncope: Qualified Codes: R55 - Syncope and collapse Latoya Smith Jul 01, 2017 11:18 Rex Wilson DO Jul 05, 2017 15:27
[2017-07-01] MEDS ORDERED: LORazepam 1 MG TAB PO PRN (12:45)
--- NOTE | 2017-07-01 12:58 | RADRPT ---
EXAM DATE/TIME: 07/01/2017 12:23 [place] COMPARISON: No previous studies available for comparison. INDICATIONS : Syncope. MEDICAL HISTORY : Chronic obstructive pulmonary disease. Gastroesophageal reflux disease. Syncope. CVA. Migraine. Gas tritis. Diverticulitis. Hiatal hernia. SURGICAL HISTORY : Tonsillectomy. Hysterectomy. Cardiac catheterization. Laparoscopic salpingo-oophorectomy. ENCOUNTER: Initial ACUITY: 1 day PAIN SCORE: 5/10 LOCATION: Bilateral neck PEAK SYSTOLIC VELOCITIES (cm/sec): ICA/CCA RATIO: Right: 1.4 Left: 1.1 ICA: Right: 113 Left: 116 CCA: Right: 79 Left: 107 ECA: Right: 104 Left: 120 VERTEBRAL: Right: 52 antegrade Left: 57 antegrade Elevated flow velocities and ICA/CCA ratios have been found to correlate with increased degrees of vessel stenosis, calculated as percentage of diameter relative to a normal segment of distal ICA/CCA FINDINGS: RIGHT CAROTID: No significant stenosis is visualized. The waveforms are within normal limits. LEFT CAROTID: No significant stenosis is visualized. The waveforms are within normal limits. VERTEBRAL ARTERIES: Antegrade flow is seen in both vertebral arteries. MISCELLANEOUS: None. CONCLUSION: 1. No significant atherosclerotic disease or stenosis is present within either internal carotid arter y. 2. There is antegrade flow in both vertebral arteries. Ayan Pimentel MD on July 01, 2017 at 12:55 Board Certified Radiologist. This report was verified electronically.
[2017-07-02] VITALS: PULSE 55
--- NOTE | 2017-07-02 00:59 | EKG ---
Date Performed: 06/30/2017 Time Performed: 16:21:52 PTAGE: 61 years EKG: Sinus rhythm NORMAL ECG Since the prior tracing, there has been no significant change DOCTOR: Mamadou Galdamez Interpretating Date/Time 07/02/2017 00:57:34
[2017-07-02] MEDS: ONDANSETRON HCL 4 MG/2 ML VIAL IV PRN ×2 (02:36→09:48)
[2017-07-02 03:08] VITALS: BP 100/57; PULSE 54; RESP 18; TEMP 97.8; O2SAT 98
[2017-07-02 04:30] VITALS: PULSE 60
[2017-07-02 07:00] VITALS: PULSE 55
[2017-07-02 07:17] VITALS: BP 108/59; PULSE 64; RESP 18; TEMP 97.9; O2SAT 96
--- NOTE | 2017-07-02 09:38 | HHI.DS ---
Discharge Summary Admission Date Jun 30, 2017 at 18:42 Discharge Date: Jul 02, 2017 Admitting Diagnosis Syncope (1) Syncope Diagnosis: Principal ICD Codes: R55 - Syncope and collapse Status: Acute Consultants none Procedures none Brief History Patient is a 61-year-old female who comes in complaining of syncopal episode. She says she went to work today and she had syncopal episode. EMS was called, she passed out again with them. They did check orthostatic vital signs and noticed a drop in her blood pressure with standing. She says she has been sick with flulike symptoms and has not been eating and drinking as much. She denies having any chest pain or shortness of breath. She denies nausea or vomiting. She has not had any fever or chills. Patient has history of ventricular arrhythmia 2008,2009 had cardiac cath and was on metoprolol for a while . Patient at that time felt palpitations before the arrhythmia. Patient will be admitted and placed on monitor and give fluids as was orthostatic today. CBC/BMP: 06/30/17 1640 07/01/17 0519 Significant Findings Laboratory Tests Test 06/30/17 16:40 06/30/17 18:55 07/01/17 05:19 Monocytes (%) (Auto) 9.3 % (0.0-8.0) Aspartate Amino Transf (AST/SGOT) 13 U/L (15-37) Sodium Level 146 MEQ/L (136-145) Chloride Level 110 MEQ/L (98-107) 111 MEQ/L (98-107) Estimat Glomerular Filtration Rate 62 ML/MIN (>89) 68 ML/MIN (>89) Troponin I LESS THAN 0.02 NG/ML Urine Bacteria RARE /hpf (NONE) Calcium Level 8.2 MG/DL (8.5-10.1) Imaging Last Impressions Carotid Artery Ultrasound 07/01/17 0000 Signed Impressions: Service Date/Time: Saturday, July 01, 2017 12:23 - CONCLUSION: 1. No significant atherosclerotic disease or stenosis is present within either internal carotid artery. 2. There is antegrade flow in both vertebral arteries. Ayan Pimentel MD Chest X-Ray 06/30/17 1623 Signed Impressions: Service Date/Time: Friday, June 30, 2017 16:34 - CONCLUSION: No acute disease. Tomas Parra MD PE at Discharge General: NAD, AAOx3 Chest: CTA Cardiac: Regular Abd: +BS, soft ND/NT Ext: No edema Hospital Course Syncope - Pt is a 61 y/o female with GERD, chronic back pain, hx of CVA in 2004 and hx of ventricular arrhythmia who presented to the ED on 06/30 after a syncopal episode at work. She had a second syncopal episode after the EMS arrived. - Pt had reported orthostatic vital signs and noticed a drop in her blood pressure with standing. Pt was reportedly sick recently with flulike symptoms and had not been eating and drinking as much as she normally does. - Patient has history of ventricular arrhythmia 2008 and had a Cardiac cath in 04/10 which noted normal coronary arteries and in 2009 she had an EPS with Dr. Carreno which was negative. - Pt was given IVF overnight and orthostatic vital signs were rechecked this morning which are negative. - Telemetry - Check Holter Monitor - Carotid US-> No significant atherosclerotic disease or stenosis is present within either internal carotid artery. There is antegrade flow in both vertebral arteries. - 2D echo (pending) - Encourage oral intake - Supportive care - PT evaluation Orthostatic syncope - See above Nausea Patient reports she has been having nausea for 2 weeks denies abdominal pain denies vomiting CMP on admission non remarkable patient to follow up with outpatient GI, she has seen Dr. Trujillo in the past Dermatitis located bilateral upper eyelids. Patient reports that she had an appointment with outpatient dematology prior to getting sick but was unable to keep the appointment due to acute illness (flu like symptoms) Solumedrol 40 mg IV x 1 follow up with Dermatology outpatient Plan to DC patient once echocardiogram completed. Patient to follow up with PCP in 1 week. Pt Condition on Discharge: Stable Discharge Disposition: Discharge Home Discharge Instructions DIET: Follow Instructions for: Heart Healthy Diet Activities you can perform: Regular-No Restrictions Follow up Referrals: Cardiology - [address] Clayton Mckeon Dermatology - 1 Week Gastroenterology - [address] Trujillo PCP Follow-up - [address] Vita Back Continued Medications: Ondansetron (Zofran) 4 Mg Tab 4 MG PO Q6HR PRN for NAUSEA OR VOMITING, TAB 0 Refills Additional Information Patient examined. Assessment and plan formulated with Brit Tang PA-C. I agree with the above. Echocardiogram (07/02) --> EF 60 - 65% Brit Tang Jul 02, 2017 09:38 Rex Wilson DO Jul 05, 2017 15:29
[2017-07-02] MEDS: SODIUM CHLOR 0.9% 1000 ML INJ 1,000 ML IV SCH (09:48)
[2017-07-02] MEDS: SODIUM CHLORIDE 0.9% FLUSH 10 ML FLUSH IV FLUSH SCH (09:48)
[2017-07-02] MEDS: DOCUSATE SODIUM 50 MG/SENNA 8.6 MG TAB PO SCH (09:49)
[2017-07-02] MEDS ORDERED: ZOFR4TAB PO (11:30)
[2017-07-02 11:35] VITALS: BP_SYST 134; BP_SYST 136; BP_SYST 143; BP_DIAS 63; BP_DIAS 75; BP_DIAS 85; PULSE 75; RESP 18; TEMP 98.5; O2SAT 97
[2017-07-02] MEDS ORDERED: methylPREDNISolone SOD SUCC 40 MG/1 ML VIAL IV PUSH ONE (12:15)
--- NOTE | 2017-07-02 12:25 | ECHRPT ---
Indication: Syncope and collapse CONCLUSIONS Normal left ventricular size and wall thickness. The left ventricular systolic function is normal wi th an estimated ejection fraction in the range of 60-65%. Normal wall motion. Possible very small circumferential pericardial effusion with no evidence for tamponade. There is trace tricuspid regurgitation. The estimated pulmonary arterial pressure is 36 mmHg. BP: 137 / 63 HR: 76 Rhythm: Sinus MEASUREMENTS (Male / Female) Normal Values Technical Quality:Fair 2D ECHO LV Diastolic Diameter PLAX 3.8 cm 4.2 - 5.9 / 3.9 - 5.3 cm LV Systolic Diameter PLAX 2.8 cm IVS Diastolic Thickness 0.9 cm 0.6 - 1.0 / 0.6 - 0.9 cm LVPW Diastolic Thickness 0.9 cm 0.6 - 1.0 / 0.6 - 0.9 cm LV Relative Wall Thickness 0.5 LVOT Diameter 2.0 cm M-MODE Aortic Root Diameter MM 2.6 cm LA Systolic Diameter MM 3.1 cm LA Ao Ratio MM 1.2 AV Cusp Separation MM 1.7 cm DOPPLER AV Peak Velocity 140.0 cm/s AV Peak Gradient 7.8 mmHg LVOT Peak Velocity 102.0 cm/s LVOT Peak Gradient 4.2 mmHg AV Area Cont Eq pk 2.3 cm Mitral E Point Velocity 84.4 cm/s Mitral A Point Velocity 69.1 cm/s Mitral E to A Ratio 1.2 LV E' Lateral Velocity 10.8 cm/s Mitral E to LV E' Lateral Ratio 7.8 LV E' Septal Velocity 8.7 cm/s Mitral E to LV E' Septal Ratio 9.7 TR Peak Velocity 288.0 cm/s TR Peak Gradient 33.2 mmHg Right Atrial Pressure 10.0 mmHg Pulmonary Artery Systolic Pressu 43.2 mmHg Right Ventricular Systolic Press 43.2 mmHg PV Peak Velocity 109.0 cm/s PV Peak Gradient 4.8 mmHg FINDINGS LEFT VENTRICLE Normal left ventricular size and wall thickness. The left ventricular systolic function is normal wi th an estimated ejection fraction in the range of 60-65%. Normal wall motion. RIGHT VENTRICLE Normal right ventricular size and systolic function. LEFT ATRIUM The left atrial size is normal. RIGHT ATRIUM The right atrial size is normal. ATRIAL SEPTUM Normal atrial septal thickness without atrial level shunting by limited color doppler interrogation. AORTA The aortic root and proximal ascending aorta are normal in size on limited imaging. MITRAL VALVE Structurally normal mitral valve. No mitral valve stenosis or regurgitation. AORTIC VALVE Trileaflet aortic valve. No aortic valve stenosis or regurgitation. TRICUSPID VALVE There is trace tricuspid regurgitation. The estimated pulmonary arterial pressure is 36 mmHg. PULMONARY VALVE No pulmonary valve regurgitation or stenosis. VESSELS The inferior vena cava is normal in size. PERICARDIUM Possible very small circumferential pericardial effusion with no evidence for tamponade. Khang Summers MD (Electronically Signed) Final Date:02 July 2017 12:24
--- NOTE | 2017-07-04 14:50 | HM ---
Date Performed: 07/01/2017 Time Performed: 14:46:00 HOOKUP DATE: 07/01/17 02:46:00 PM Tue ANALYSIS START TIME: 07/01/2017 2:51:00 PM ANALYSIS END TIME: 07/02/2017 2:06:51 PM PATIENT AGE: 61 PATIENT HEIGHT PATIENT WEIGHT DRUG LIST PATIENT DIAGNOSIS: SYNCOPE TEST NARRATIVE: The patient's average heart rate was 72 BPM. No episodes of tachycardia wer e noted. No episodes of bradycardia were noted. No pauses exceeding 2.0 seconds were noted. 3 ventricular ectopics, which represented < 1% of the total beat count, were noted. The highest vent ricular ectopic frequency occurred from 03:00 PM to 04:00 PM Tue. During this time 2 VE(s) occurred. Ventricular ectopics were observed as 3 isolated beat(s) only. No couplets or runs were noted. 6 supraventricular ectopics, which represented < 1% of the total beat count, were noted. The highes t supraventricular ectopic frequency occurred from 12:00 AM to 01:00 AM Wed. During this time 4 SVE( s) occurred. No episodes of ST depression (defined as -1.0 mm or more) were noted in channel 1. No episodes of ST depression (defined as -1.0 mm or more) were noted in channel 2. No episodes of ST depression (defined as -1.0 mm or more) were noted in channel 3. no diary returned TEST INTERPRETATION: Patient is in Sinus rhythm throughout the recording. The average heart rate is 72, the minimum heart rate is 52, and the maximu m heart rate is 117 bpm. There are three isolated ventricular premature beats. There is no other emmett tricular ectopy seen. There are four isolated atrial premature beats. There are no runs of supraventr icular beats. There are no pauses noted. There is no diary returned. Conclusions: Sinus rhythm throu ghout the recording. This is an unremarkable holter with no findings to explain the syncope. Signed by : Chandan Milan
== END 2017-07-02 17:18 | disposition home or self-care (01) ==
LOC: NEPC 15:41 → NEDA 18:42 → NEPHCDU 20:36
PROVIDERS: ADMIT Hospitalist; ATTEND Hospitalist
DX: R55 Syncope and collapse (principal); E86.0 Dehydration; J44.9 Chronic obstructive pulmonary disease, unspecified; K21.9 Gastro-esophageal reflux disease without esophagitis; L30.9 Dermatitis, unspecified; M54.9 Dorsalgia, unspecified; G89.29 Other chronic pain; Z86.73 Personal history of transient ischemic attack (TIA), and cerebral infarction without residual deficits; Z87.891 Personal history of nicotine dependence; Z90.710 Acquired absence of both cervix and uterus
CPT/HCPCS: 71045; 80048; 80053; 81001; 84484; 85025; 85610; 85730; 93005; 93225; 93226; 93306; 93880; 96361; 96374; 96375; 97163; 99285; G0378; G8987; G8988; J2405; J2920; J7030

== ENCOUNTER 2017-09-04 16:00 | Emergency (ER) | payer OTHER ==
[~2017-09-04] VITALS: Ht 157.5 cm; Wt 66.0 kg
[~2017-09-04 16:00] MED LIST changes: -CIPR-9 PO; -METR-1 PO; -NAPR500T2 PO; +ZOFR4TAB PO
[2017-09-04 16:10] VITALS: BP 126/68; PULSE 89; PULSE 95; RESP 17; TEMP 98.5; O2SAT 98
[2017-09-04 16:20] VITALS: RESP 17; O2SAT 98
[2017-09-04 16:21] VITALS: BP_SYST 126; BP_SYST 131; BP_DIAS 61; BP_DIAS 68; RESP 17
--- NOTE | 2017-09-04 16:26 | PD ---
HPI Chief Complaint: Syncope Time Seen by Provider: 16:16 Travel History International Travel<30 days: No Contact w/Intl Traveler<30days: No Traveled to known affect area: No History of Present Illness HPI Today while at work patient had a syncopal episode. She does not recall what happened prior to during only notes that she woke up on the floor. Patient denies feeling dizzy or lightheaded prior to this episode. Patient states that since that she is noticed that every time she sits up or stands up that she passes out. Patient states that she has had some episodes of nausea and occasional vomiting over the last day or so as well as some loose stools. No known drug allergies Past medical history significant for tonsillectomy, CVA in 2005, migraine, mitral regurgitation, V. tach, COPD, asthma, gastritis IBS diverticulitis GERD, hiatal hernia, appendectomy, endometriosis, bipolar PFSH Past Medical History Arthritis: No Asthma: Yes Autoimmune Disease: No Blood Disorders: No Anxiety: Yes Depression: Yes Heart Rhythm Problems: No Cancer: No Cardiovascular Problems: Yes (MITRAL VALVE REGURITATION ; HX HEART CATH ; HX V- TACH) High Cholesterol: No Chemotherapy: No Chest Pain: No Congestive Heart Failure: No COPD: Yes Cerebrovascular Accident: Yes (2005; NO DEFICITS) Diabetes: No Diminished Hearing: No Endocrine: No Gastrointestinal Disorders: Yes (HX GASTRITIS/IBS/HX DIVERTICULITIS/GERD) GERD: Yes Glaucoma: No Genitourinary: No Headaches: No Hepatitis: No Hiatal Hernia: Yes Hypertension: No Immune Disorder: No Implanted Vascular Access Dvce: No Kidney Stones: No Musculoskeletal: Yes (LUMBAR STENOSIS; HX SCIATICA PAIN RT SIDE) Neurologic: Yes (2004 CVA) Psychiatric: Yes (ANXIETY AND DEPRESSION (TAKING PROZAC)) Reproductive: Yes (ENDOMETRIOSIS WITH ITZ) Respiratory: Yes (ASTHMA; COPD) Immunizations Current: Yes Migraines: Yes ( ) Myocardial Infarction: No Radiation Therapy: No Renal Failure: No Seizures: No Sickle Cell Disease: No Sleep Apnea: No Thyroid Disease: No Ulcer: No Menopausal: Yes : 4 Para: 2 Miscarriage: 2 : 0 Ectopic : Yes Ovarian Cysts: Yes Past Surgical History Abdominal Surgery: Yes ( ) AICD: No Appendectomy: Yes Arteriovenous Shunt: No Cardiac Surgery: No Cholecystectomy: No Ear Surgery: No Endocrine Surgery: No Eye Surgery: No Genitourinary Surgery: No Gynecologic Surgery: Yes (ECTOPIC PREG-LAPAROTOMY WITH SALPINGO-OOPHORECTOMY) Hysterectomy: Yes (1994) Insulin Pump: No Joint Replacement: No Neurologic Surgery: No Oral Surgery: Yes (T&A) Pacemaker: No Thoracic Surgery: No Tonsillectomy: Yes (T & A) Other Surgery: Yes Social History Alcohol Use: Yes (RARE) Tobacco Use: No Substance Use: No Allergies-Medications (Allergen,Severity, Reaction): Coded Allergies: No Known Allergies (Verified Allergy, Unknown, 09/04/17) Reported Meds & Prescriptions Reported Meds & Active Scripts Active No Active Prescriptions or Reported Medications Review of Systems General / Constitutional: No: Fever Eyes: No: Visual changes HENT: No: Headaches Cardiovascular: No: Chest Pain or Discomfort Respiratory: No: Shortness of Breath Gastrointestinal: Positive: Nausea, Vomiting, Diarrhea Genitourinary: No: Dysuria Musculoskeletal: No: Pain Skin: No Rash Neurologic: Positive: Syncope Psychiatric: No: Depression Endocrine: No: Polydipsia Hematologic/Lymphatic: No: Easy Bruising Physical Exam Narrative GENERAL: SKIN: Warm and dry. HEAD: Atraumatic. Normocephalic. EYES: Pupils equal and round. No scleral icterus. No injection or drainage. Lateral fatigable nystagmus noted when changing position of head and when sitting up, without rotary or vertical component. ENT: No nasal bleeding or discharge. Mucous membranes pink and moist. NECK: Trachea midline. No JVD. CARDIOVASCULAR: Regular rate and rhythm. RESPIRATORY: No accessory muscle use. Clear to auscultation. Breath sounds equal bilaterally. GASTROINTESTINAL: Abdomen soft, non-tender, nondistended. . MUSCULOSKELETAL: Extremities without clubbing, cyanosis, or edema. No obvious deformities. NEUROLOGICAL: Awake and alert. No obvious cranial nerve deficits. Motor grossly within normal limits. Five out of 5 muscle strength in the arms and legs. Normal speech. PSYCHIATRIC: Appropriate mood and affect; insight and judgment normal. Data Data Last Documented VS Vital Signs Date Time Temp Pulse Resp B/P (MAP) Pulse Ox O2 Delivery O2 Flow Rate FiO2 09/04/17 16:21 89 17 126/61 (82) 86 17 131/68 (89) 09/04/17 16:20 98 Room Air 09/04/17 16:10 98.5 Orders Orders Electrocardiogram (09/04/17 16:16) Complete Blood Count With Diff (09/04/17 16:16) Comprehensive Metabolic Panel (09/04/17 16:16) Ckmb (Isoenzyme) Profile (09/04/17 16:16) Troponin I (09/04/17 16:16) B-Type Natriuretic Peptide (09/04/17 16:16) Prothrombin Time / Inr (Pt) (09/04/17 16:16) Act Partial Throm Time (Ptt) (09/04/17 16:16) Lipase (09/04/17 16:16) Thyroid Stimulating Hormone (09/04/17 16:16) Chest, Single Ap (09/04/17 16:16) Ct Brain W/O Iv Contrast(Rout) (09/04/17 16:16) Iv Access Insert/Monitor (09/04/17 16:16) Ecg Monitoring (09/04/17 16:16) Oximetry (09/04/17 16:16) Drug Screen, Random Urine (09/04/17 16:16) Alcohol (Ethanol) (09/04/17 16:16) Salicylates (Aspirin) (09/04/17 16:16) Tylenol (Acetaminophen) (09/04/17 16:16) Meclizine (Antivert) (09/04/17 16:30) Sodium Chlor 0.9% 1000 Ml Inj (Ns 1000 M (09/04/17 16:30) Promethazine Inj (Phenergan Inj) (09/04/17 18:00) CKMB (09/04/17 16:30) CKMB% (09/04/17 16:30) Labs Laboratory Tests Test 09/04/17 16:30 White Blood Count 5.0 TH/MM3 Red Blood Count 4.45 MIL/MM3 Hemoglobin 13.9 GM/DL Hematocrit 40.5 % Mean Corpuscular Volume 91.2 FL Mean Corpuscular Hemoglobin 31.3 PG Mean Corpuscular Hemoglobin Concent 34.4 % Red Cell Distribution Width 13.5 % Platelet Count 308 TH/MM3 Mean Platelet Volume 7.2 FL Neutrophils (%) (Auto) 52.3 % Lymphocytes (%) (Auto) 34.1 % Monocytes (%) (Auto) 10.2 % Eosinophils (%) (Auto) 2.4 % Basophils (%) (Auto) 1.0 % Neutrophils # (Auto) 2.6 TH/MM3 Lymphocytes # (Auto) 1.7 TH/MM3 Monocytes # (Auto) 0.5 TH/MM3 Eosinophils # (Auto) 0.1 TH/MM3 Basophils # (Auto) 0.0 TH/MM3 CBC Comment DIFF FINAL Differential Comment Prothrombin Time 9.7 SEC Prothromb Time International Ratio 1.0 RATIO Activated Partial Thromboplast Time 27.1 SEC Blood Urea Nitrogen 15 MG/DL Creatinine 0.85 MG/DL Random Glucose 68 MG/DL Total Protein 7.0 GM/DL Albumin 3.6 GM/DL Calcium Level 8.2 MG/DL Alkaline Phosphatase 92 U/L Aspartate Amino Transf (AST/SGOT) 35 U/L Alanine Aminotransferase (ALT/SGPT) 33 U/L Total Bilirubin 0.3 MG/DL Sodium Level 146 MEQ/L Potassium Level 3.9 MEQ/L Chloride Level 113 MEQ/L Carbon Dioxide Level 25.3 MEQ/L Anion Gap 8 MEQ/L Estimat Glomerular Filtration Rate 68 ML/MIN Total Creatine Kinase 435 U/L Creatine Kinase MB 5.8 NG/ML Creatine Kinase MB % 1.3 % Troponin I LESS THAN 0.02 NG/ML B-Type Natriuretic Peptide 19 PG/ML Lipase 121 U/L Thyroid Stimulating Hormone 3rd Gen 1.100 uIU/ML Salicylates Level LESS THAN 1.7 MG/DL Urine Opiates Screen NEG Acetaminophen Level LESS THAN 2.0 MCG/ML Urine Barbiturates Screen NEG Urine Amphetamines Screen NEG Urine Benzodiazepines Screen NEG Urine Cocaine Screen NEG Urine Cannabinoids Screen NEG Ethyl Alcohol Level 122 MG/DL MDM Medical Decision Making Medical Screen Exam Complete: Yes Emergency Medical Condition: Yes Medical Record Reviewed: Yes Differential Diagnosis Orthostatic syncope versus dehydration versus anemia versus STEMI versus intracranial hemorrhage versus electrolyte abnormality versus vertigo Narrative Course CBC shows no leukocytosis, no anemia, normal platelet count, no left shift Coagulation profile is within normal limits Toxicology profile is negative for opiates barbiturates and amphetamines benzodiazepines cocaine and marijuana. Chest x-ray read by radiologist as the lungs are clear CT of head read by radiologist as no acute intracranial abnormality identified. Chemistry shows normal electrolytes, normal kidney liver and pancreatic functions. Negative cardiac enzymes, beta natruretic peptide normal, normal TSH screen Diagnosis Primary Impression: Orthostatic syncope Patient Instructions: General Instructions, Vertigo (ED) Scripts Meclizine (Meclizine) 25 Mg Tab 25 MG PO TID Y for VERTIGO, #15 TAB 0 Refills Prov: Fernando Richards MD 09/04/17 Disposition: 01 DISCHARGE HOME Condition: Stable Fernando Richards MD Sep 04, 2017 16:26
[2017-09-04] MEDS ORDERED: MECLIZINE HCL 25 MG TAB PO ONE (16:30)
[2017-09-04] MEDS ORDERED: SODIUM CHLOR 0.9% 1000 ML INJ 1,000 ML IV ONE (16:30)
--- NOTE | 2017-09-04 16:40 | RADRPT ---
EXAM DATE/TIME: 09/04/2017 16:22 [facility] COMPARISON: CHEST SINGLE AP, June 30, 2017, 16:34. INDICATIONS : Dizziness, shortness of breath, and syncope episodes. MEDICAL HISTORY : Chronic obstructive pulmonary disease. Gastroesophageal reflux disease. Syncope. CVA. Migraine. Gastr itis. Diverticulitis. Hiatal hernia. SURGICAL HISTORY : Tonsillectomy. Hysterectomy. Cardiac catheterization. Laparoscopic salpingo-ophorectomy. ENCOUNTER: Initial ACUITY: 1 day PAIN SCORE: 0/10 LOCATION: Bilateral chest FINDINGS: A single view of the chest demonstrates the lungs to be symmetrically aerated without evidence of mas s, infiltrate or effusion. The cardiomediastinal contours are unremarkable. Osseous structures are intact. CONCLUSION: The lungs are clear. Tomas Esquivel MD on September 04, 2017 at 16:37 Board Certified Radiologist. This report was verified electronically.
[2017-09-04 17:06] LABS: AUTOMATED NEUTROPHIL # 2.6 TH/MM3 (1.8-7.7); EOSINOPHIL # 0.1 TH/MM3 (0-0.4); EOSINOPHIL % 2.4 % (0.0-4.0); HEMATOCRIT 40.5 % (35.0-46.0); HEMOGLOBIN 13.9 GM/DL (11.6-15.3); LYMPH % 34.1 % (9.0-44.0); LYMPHOCYTE # 1.7 TH/MM3 (1.0-4.8); MEAN CELL VOLUME 91.2 FL (80.0-100.0); MEAN CORPUSCULAR HEMOGLOBIN 31.3 PG (27.0-34.0); MEAN CORPUSCULAR HGB CONC 34.4 % (32.0-36.0); MEAN PLATELET VOLUME 7.2 FL (7.0-11.0); MONO % 10.2 % (0.0-8.0); MONOCYTE # 0.5 TH/MM3 (0-0.9); NEUT % 52.3 % (16.0-70.0); PLATELET COUNT 308 TH/MM3 (150-450); RED BLOOD COUNT 4.45 MIL/MM3 (4.00-5.30); RED CELL DISTRIBUTION WIDTH 13.5 % (11.6-17.2)
[2017-09-04 17:10] LABS: PROTHROMBIN TIME - PATIENT 9.7 SEC (9.8-11.6)
--- NOTE | 2017-09-04 17:29 | RADRPT ---
EXAM DATE/TIME: 09/04/2017 17:09 [facility] COMPARISON: CT ABDOMEN & PELVIS W CONTRAST, March 06, 2017, 12:28. INDICATIONS : Syncope episode, fell hit head. RADIATION DOSE: 56.35 CTDIvol (mGy) MEDICAL HISTORY : Cerebrovascular disease. Cardiovascular disease Chronic obstructive pulmonary disease. SURGICAL HISTORY : Hysterectomy. ENCOUNTER: Initial ACUITY: 1 day PAIN SCALE: 5/10 LOCATION: cranial TECHNIQUE: Multiple contiguous axial images were obtained of the head. Using automated exposure control and adj ustment of the mA and/or kV according to patient size, radiation dose was kept as low as reasonably a chievable to obtain optimal diagnostic quality images. DICOM format image data is available electro nically for review and comparison. FINDINGS: CEREBRUM: The ventricles are normal for age. No evidence of midline shift, mass lesion, hemorrhage or acute in farction. No extra-axial fluid collections are seen. POSTERIOR FOSSA: The cerebellum and brainstem are intact. The 4th ventricle is midline. The cerebellopontine angle i s unremarkable. EXTRACRANIAL: The visualized portion of the orbits is intact. SKULL: The calvaria is intact. No evidence of skull fracture. CONCLUSION: 1. No acute intracranial abnormality identified. Baltazar Montilla MD on September 04, 2017 at 17:22 Board Certified Radiologist. This report was verified electronically.
[2017-09-04 17:59] LABS: ACETAMINOPHEN LESS THAN 2.0 MCG/ML (10.0-30.0); ALBUMIN 3.6 GM/DL (3.4-5.0); ALKALINE PHOSPHATASE 92 U/L (45-117); ALT (GPT) 33 U/L (10-53); AST (GOT) 35 U/L (15-37); BICARBONATE 25.3 MEQ/L (21.0-32.0); BLOOD UREA NITROGEN 15 MG/DL (7-18); CALCIUM 8.2 MG/DL (8.5-10.1); CHLORIDE 113 MEQ/L (98-107); CREATININE 0.85 MG/DL (0.50-1.00); GLOMERULAR FILTRATION RATE 68 ML/MIN (>89); GLUCOSE,RANDOM 68 MG/DL (74-106); SODIUM (NA) 146 MEQ/L (136-145); TOTAL BILIRUBIN ADULT 0.3 MG/DL (0.2-1.0); TROPONIN I LESS THAN 0.02 NG/ML (0.02-0.05)
[2017-09-04] MEDS ORDERED: PROMETHAZINE INJ 25 MG/ML VIAL IM ONE (18:00)
[2017-09-04] MEDS ORDERED: MECL-62 PO (18:48)
--- NOTE | 2017-09-05 05:42 | EKG ---
Date Performed: 09/04/2017 Time Performed: 16:49:29 PTAGE: 62 years EKG: Sinus rhythm POSSIBLE SEPTAL MYOCARDIAL INFARCTION ABNORMAL ECG PREVIOUS TRACING : 09/04/2017 16.42 No significant change from previous tracing noted. DOCTOR: Khang Summers Interpretating Date/Time 09/05/2017 05:41:15
== END 2017-09-04 19:50 | disposition home or self-care (01) ==
LOC: NEPC 16:00
DX: R55 Syncope and collapse (principal); R94.31 Abnormal electrocardiogram [ECG] [EKG]; F32.9 Major depressive disorder, single episode, unspecified; F41.9 Anxiety disorder, unspecified; I34.0 Nonrheumatic mitral (valve) insufficiency; J44.9 Chronic obstructive pulmonary disease, unspecified; K21.9 Gastro-esophageal reflux disease without esophagitis; K58.9 Irritable bowel syndrome, unspecified; Z86.73 Personal history of transient ischemic attack (TIA), and cerebral infarction without residual deficits
CPT/HCPCS: 70450; 71045; 80053; 80307; 82550; 82552; 83690; 83880; 84443; 84484; 85025; 85610; 85730; 93005; 96360; 96372; 99285; J2550; J7030